=== PATIENT | male | born 1995 | race Caucasian/White ===

== ENCOUNTER 2017-12-24 12:17 | Emergency (ER) | payer OTHER ==
[~2017-12-24] VITALS: Ht 177.8 cm; Wt 92.0 kg
[2017-12-24 14:44] VITALS: BP 165/94
== END 2017-12-24 14:45 | disposition home or self-care (01) ==
LOC: EME 12:17
DX: S83.91XA Sprain of unspecified site of right knee, initial encounter (principal); W18.39XA Other fall on same level, initial encounter; Y93.67 Activity, basketball; Z88.0 Allergy status to penicillin
CPT/HCPCS: 73564; 99281; 99284